=== PATIENT | female | born 2005 | race Two or more races ===

== ENCOUNTER 2024-09-14 09:03 | Emergency (ER) | payer MEDICAID, SELFPAY ==
--- NOTE | 2024-09-14 09:10 | EDNOTE_ITS ---
Nausea/Vomit./Diarrhea-RME/HPI General Chief complaint: Nausea/Vomiting/Diarrhea Stated complaint: VOMITING X4 DAYS, STOMACH PAIN , ACID REFLUX Time Seen by Provider: 09/14/24 09:13 Arrival date/time: 09/14/24 09:03 RME / HPI RME / HPI Narrative: This section includes all my notes and documentations, including HPI, PE, and ED course.? Marcelo Hendrickson MD HPI: 19 year old female presents to the ED for evaluation of abdominal pain beginning 4 days ago. Reports the pain is located most to the epigastric region that she feels moves up her chest, described as a burning acid sensation, rating as moderate. Accompanied by nausea and nonbloody vomiting. States she has been able to tolerate very small sips of water since onset, however unable to tolerate any larger amounts of fluids or solids. Denies fevers, chills, cough, shortness of breath, diarrhea, or urinary symptoms. No other complaints reported. Patient admits to smoking marijuana and last smoked 2 days ago. ROS: All negative except as documented in HPI. Physical Exam: General:? Alert and oriented.? No acute distress when remaining still.?? Eyes:? Conjunctivae and lids clear.? ENT:? No nasal congestion.? Neck:? Supple.? Heart:? RRR.? Lungs:? No respiratory distress.? Good air movement.? Abdomen:? Soft and nontender.?? Legs:? No clubbing, cyanosis, edema.? Skin:? Warm and dry.?? Neuro:? Alert and oriented X 3.?? I reviewed all diagnostic test results. My review of the gallbladder ultrasound report is?normal gallbladder. Blood tests remarkable for positive test. At this point, diagnoses include?first trimester . Treatment here included?Zofran and famotidine. Significant improvement noted. Prescribe Zofran and famotidine and recommended care. Based on my best medical judgment, made decision no further evaluation or treatment indicated at this time.? Patient understands and agrees to the discharge instructions customized and printed, see below. Discharge Instructions from Dr. Hendrickson printed for you: 1. After evaluation, you are (7 1/7 weeks based on last menstruation 08/05/24. Due date is 05/13/25. 2. Zofran for nausea/vomiting. Eat regular nutritious meals. For good hydration, increase oral fluid and maintain clear urine. If dark or yellow, increase oral fluid. 3. Famotidine for acid reflux (mild ulcer) as needed, common in . 4. See coat examiner of your choice on 09/16/2024 for recheck and to start care. 5. Seek immediate medical care with worsening, vaginal bleeding, or with any concerns. Instrucciones de john del Dr. Hendrickson impresas para usted: 1. Despu?s de la evaluaci?n, est? embarazada (7 / semanas seg?n la ?ltima menstruaci?n el 05/08/24. La fecha de parto prevista es el 13/05/25). 2. Zofran para las n?useas/v?mitos. Consuma comidas nutritivas con regularidad. Para viviana buena hidrataci?n, aumente la ingesta de l?quidos por v?a oral y mantenga la orina carlos. Si la orina es oscura o amarilla, aumente la ingesta de l?quidos por v?a oral. 3. Famotidina para el reflujo ?cido (?lcera leve) seg?n sea necesario, com?n en el embarazo. 4. Visite al obstetra de cisneros elecci?n el 16/09/2024 para volver a realizar un control y comenzar con la atenci?n . 5. Busque atenci?n m?dica inmediata si empeora el sangrado vaginal o si tiene alguna inquietud. Related Data Previous Rx's ?Medication ?Instructions ?Recorded famotidine 40 mg tablet 40 mg PO BID #30 tabs ondansetron 4 mg disintegrating 4 mg PO TID PRN nausea and 09/14/24 tablet vomiting 30 days #30 tabs Allergies Allergy/AdvReac Type Severity Reaction Status Date / Time No Known Allergies Allergy Verified 09/14/24 09:04 Review of Systems Review of Systems Systems Reviewed: All systems reviewed, normal except as documented Past Medical History Social History SMOKING STATUS: Never smoker ED Exam Narrative Physical exam: As noted in HPI Course Quality Measures none Orders Category Date Time Status US gall bladder Stat Exams 09/14/24 09:14 Completed Amylase Stat Lab 09/14/24 09:43 Completed CBC Stat Lab 09/14/24 09:43 Completed CMP [Comprehensive Metabolic Panel] Stat Lab 09/14/24 09:43 Completed HCG,Qualitative Serum Stat Lab 09/14/24 09:43 Completed Lipase Stat Lab 09/14/24 09:43 Completed Magnesium Stat Lab 09/14/24 09:43 Completed Famotidine [Pepcid] Med 09/14/24 09:14 Discontinued 40 mg PO X1 ONE Ondansetron Odt [Zofran Odt] Med 09/14/24 09:14 Discontinued 4 mg PO X1 ONE Pantoprazole [Protonix] Med 09/14/24 09:14 Discontinued 40 mg PO X1 ONE Vital Signs Vital signs: Vital Signs Temperature 99.3 F 09/14/24 09:11 Pulse Rate 74 09/14/24 09:11 Respiratory Rate 16 09/14/24 09:11 Blood Pressure 128/79 09/14/24 09:11 Pulse Oximetry (%) 99 09/14/24 09:11 Oxygen Delivery Method Room Air 09/14/24 09:11 Pulse ox is 99% on room air which is adequate. Nausea/Vomiting/Diarrhea MDM Narrative MDM Narrative:: Dona Pedro am scribing for and in the presence of Dr. Hendrickson. Patient data External records reviewed:: [facility] previous records (I reviewed ED visit on 05/05/2024) Clinical information provided by:: patient Social determinants that could affect healthcare access:: substance use (Marijuana ) Patient has the following chronic illnesses:: No chronic medical hx reported How is presenting disease/condition affected by chronic disease/condition?: no chronic disease Evaluation data The following diagnostics were reviewed and interpreted by me:: lab results and radiology exam(s) Lab and/or radiology exams considered but not ordered:: None Interpretation Summary: Positive Medications / Prescriptions Medications / Prescriptions considered but not ordered:: None Medication administrations:: Medication Administration History Discontinued Medications Famotidine (Famotidine 20 Mg Tablet) 40 mg PO X1 ONE Stop: 09/14/24 09:15 Last Admin: 09/14/24 09:32 Dose: 40 mg Documented By: GARY Ondansetron HCl (Ondansetron Odt 4 Mg Tabrap) 4 mg PO X1 ONE; Protocol Stop: 09/14/24 09:15 Last Admin: 09/14/24 09:33 Dose: 4 mg Documented By: GARY Pantoprazole Sodium (Pantoprazole 40 Mg Tablet) 40 mg PO X1 ONE Stop: 09/14/24 09:15 Last Admin: 09/14/24 09:32 Dose: 40 mg Documented By: Admin: 09/14/24 09:32 Dose: 40 mg Documented By: GARY Patient given Famotidine, Zofran, Pantoprazole Consultations Consultation(s) initiated? (list below): No Diagnosis Nausea Differential Diagnosis: food poisoning, gastroenteritis, drug-induced nausea and vomiting, dehydration and other (Gastritis, cholelithiasis, ) Most likely diagnosis given after review of the tests above:: First trimester Admission Indicated Admission indicated?: not indicated Explain why admission is indicated or not indicated:: Does not meet admission criteria Admission Request Was there a request for admission?: No Disposition Plan Disposition Plan: Discharge Discharge Attestation Discharge Attestation: The patient and all family members were given an opportunity to ask questions and understood the discharge instructions. Discharge instructions specifically effects, indications for sooner follow up or return to the emergency department, and the expected course of current diagnosis. Patient condition: Stable Discharge Plan Plan Patient Disposition: HOME (Self Care) Prescriptions/Referrals Prescriptions/Med Rec: New famotidine 40 mg tablet 40 mg PO BID Qty: 30 0RF ondansetron 4 mg tablet,disintegrating 4 mg PO TID PRN (Reason: nausea and vomiting) 30 Days Qty: 30 0RF Problem List Clinical Impression: First trimester Patient/Caregiver Discharge Instructions Discharge Activity: activity as tolerated Education Materials: First Trimester, ED , New Dx Additional Instructions: Discharge Instructions from Dr. Hendrickson printed for you: 1. After evaluation, you are (7 1/7 weeks based on last menstruation 08/05/24. Due date is 05/13/25. 2. Zofran for nausea/vomiting. Eat regular nutritious meals. For good hydration, increase oral fluid and maintain clear urine. If dark or yellow, increase oral fluid. 3. Famotidine for acid reflux (mild ulcer) as needed, common in . 4. See coat examiner of your choice on 09/16/2024 for recheck and to start care. 5. Seek immediate medical care with worsening, vaginal bleeding, or with any concerns. Instrucciones de john del Dr. Hendrickson impresas para usted: 1. Despu?s de la evaluaci?n, est? embarazada (7 1/7 semanas seg?n la ?ltima menstruaci?n el 05/08/24. La fecha de parto prevista es el 13/05/25). 2. Zofran para las n?useas/v?mitos. Consuma comidas nutritivas con regularidad. Para viviana buena hidrataci?n, aumente la ingesta de l?quidos por v?a oral y mantenga la orina carlos. Si la orina es oscura o amarilla, aumente la ingesta de l?quidos por v?a oral. 3. Famotidina para el reflujo ?cido (?lcera leve) seg?n sea necesario, com?n en el embarazo. 4. Visite al obstetra de cisneros elecci?n el 16/09/2024 para volver a realizar un control y comenzar con la atenci?n . 5. Busque atenci?n m?dica inmediata si empeora el sangrado vaginal o si tiene alguna inquietud. Print Language: Ukrainian Stand Alone Forms: Jolene Award Info., Patient Portal Info Letter
[2024-09-14 09:11] VITALS: BP 128/79; PULSE 74; RESP 16; TEMP 37.4; O2SAT 99; BMI 19.9
--- NOTE | 2024-09-14 09:14 | XR_ITS ---
Examination: Abdomen sonogram, Limited Date and time of exam: September 14, 2024 0957 hours INDICATIONS: Abdominal pain nausea vomiting beginning several days ago Technique: Real-time medina scale transabdominal sonographic images of the upper abdomen obtained. Findings: Normal gallbladder Normal common bile duct 0.2 cm Pancreatic head 2.6 cm Liver 13.2 cm smooth contour no focal liver lesions Normal hepatopedal portal venous flow Patent IVC IMPRESSION: Normal gallbladder Normal common bile duct No focal liver lesions
[2024-09-14] MEDS: PANTOPRAZOLE 40 MG TABLET PO ×2 (09:32)
[2024-09-14] MEDS: FAMOTIDINE 20 MG TABLET 40 MG PO (09:32)
[2024-09-14] MEDS: ONDANSETRON ODT 4 MG TABRAP PO (09:33)
[2024-09-14 10:07] LABS: Basophils % (Auto) 0 % (0-2.5); Eosinophils # (Auto) 0.1 Thou/mm3 (0.0-0.5); Eosinophils % (Auto) 1 % (0-10); Hematocrit 36.6 % (36.0-46.0); Hemoglobin 12.8 g/dL (12.0-16.0); Immature Granulocytes % (Auto) 0 % (0-0); Immature Granulocytes Auto 0.03 Thou/mm3 (0.00-0.00); Lymphocytes # (Auto) 1.6 Thou/mm3 (1.0-4.8); Lymphocytes % (Auto) 16 % (10-50); Mean Corpuscular Hemoglobin 30.6 pg (25.0-35.0); Mean Corpuscular Volume 88 fL (80-100); Monocytes # (Auto) 0.5 Thou/mm3 (0.0-0.8); Monocytes % (Auto) 5 % (0-12); Neutrophils # (Auto) 7.5 Thou/mm3 (1.8-7.7); Neutrophils % (Auto) 77 % (37-80); Nucleated Red Blood Cell % 0 /100 WBC (0); Platelet Count 340 Thou/mm3 (140-440); RDW Standard Deviation 40.6 fL (36.4-46.3); Red Blood Count 4.18 Miln/mm3 (4.00-5.20); White Blood Count 9.6 Thou/mm3 (4.5-11.0)
[2024-09-14 10:26] LABS: HCG,Qualitative Serum Positive
[2024-09-14 10:41] LABS: Alanine Aminotransferase 9 U/L (10-49); Albumin, Serum 5.4 gm/dL (3.5-5.0); Albumin/Globulin Ratio 1.9 (1.2-2.2); Alkaline Phosphatase 56 U/L (46-116); Amylase 57 U/L (30-118); Anion Gap 12 (7-16); Aspartate Amino Transferase 14 U/L (0-34); BUN/Creatinine Ratio 13 Ratio (12-20); Bilirubin,Total 0.8 mg/dL (0.3-1.2); Blood Urea Nitrogen 9 mg/dL (9-23); Calcium 10.4 mg/dL (8.3-10.6); Calcium (Corrected) 10.4 mg/dL (8.5-10.1); Carbon Dioxide 21.6 mMol/L (20.0-31.0); Chloride 103 mMol/L (98-107); Creatinine (Component) 0.7 mg/dL (0.6-1.3); Estimated Creatinine Clearance 120.3 mL/min (>60); Globulin 2.9 gm/dL (2.3-3.5); Glucose 91 mg/dL (74-106); Lipase 31 U/L (12-53); Osmolality,Calculated 272 (275-295); Potassium 4.1 mMol/L (3.4-5.1); Sodium 137 mMol/L (136-145); Total Protein 8.3 gm/dL (5.7-8.2); eGFR > 60 See Note
== END 2024-09-14 13:00 | disposition home or self-care (01) ==
LOC: SERX 12:09
PROVIDERS: Emergency Provider Emergency Medicine
DX: O21.9 Vomiting of pregnancy, unspecified (principal); Z3A.01 Less than 8 weeks gestation of pregnancy
CPT/HCPCS: 36415; 76705; 80053; 82150; 83690; 83735; 84703; 85025; 99284; Q0162; A9270

== ENCOUNTER 2024-09-20 12:38 | Emergency (ER) | payer MEDICAID, SELFPAY ==
[2024-09-20 12:39] VITALS: BMI 21.8
[2024-09-20 13:23] VITALS: BP 107/66; PULSE 90; RESP 20; TEMP 36.9; O2SAT 100
--- NOTE | 2024-09-20 13:30 | PD.EDRME ---
Rapid Medical Screening Exam RME Arrival date/time: 09/20/24 12:38 19-year-old female presents emergency dept with complaint of upper abdominal pain patient reports being Chief Complaint: Abdominal Pain Vital signs: Vital Signs Temperature 98.5 F 09/20/24 13:23 Pulse Rate 90 09/20/24 13:23 Respiratory Rate 20 09/20/24 13:23 Blood Pressure 107/66 09/20/24 13:23 Pulse Oximetry (%) 100 09/20/24 13:23 Oxygen Delivery Method Room Air 09/20/24 13:23
[2024-09-20 14:24] LABS: Basophils % (Auto) 0 % (0-2.5); Eosinophils # (Auto) 0.1 Thou/mm3 (0.0-0.5); Eosinophils % (Auto) 1 % (0-10); Hematocrit 38.5 % (36.0-46.0); Hemoglobin 13.4 g/dL (12.0-16.0); Immature Granulocytes % (Auto) 0 % (0-0); Immature Granulocytes Auto 0.02 Thou/mm3 (0.00-0.00); Lymphocytes # (Auto) 1.9 Thou/mm3 (1.0-4.8); Lymphocytes % (Auto) 21 % (10-50); Mean Corpuscular HGB Conc 34.8 g/dl (31.0-37.0); Mean Corpuscular Hemoglobin 29.8 pg (25.0-35.0); Mean Corpuscular Volume 86 fL (80-100); Monocytes # (Auto) 0.5 Thou/mm3 (0.0-0.8); Monocytes % (Auto) 5 % (0-12); Neutrophils # (Auto) 6.5 Thou/mm3 (1.8-7.7); Neutrophils % (Auto) 72 % (37-80); Nucleated Red Blood Cell % 0 /100 WBC (0); Platelet Count 378 Thou/mm3 (140-440); RDW Standard Deviation 38.5 fL (36.4-46.3); Red Blood Count 4.49 Miln/mm3 (4.00-5.20)
[2024-09-20] MEDS: METOCLOPRAMIDE 5 MG TABLET 10 MG PO (14:41)
[2024-09-20 15:02] LABS: Alanine Aminotransferase 11 U/L (10-49); Albumin, Serum 5.3 gm/dL (3.5-5.0); Albumin/Globulin Ratio 1.5 (1.2-2.2); Alkaline Phosphatase 59 U/L (46-116); Anion Gap 11 (7-16); Aspartate Amino Transferase 15 U/L (0-34); BUN/Creatinine Ratio 13 Ratio (12-20); Bilirubin,Total 0.5 mg/dL (0.3-1.2); Blood Urea Nitrogen 9 mg/dL (9-23); Calcium 10.3 mg/dL (8.3-10.6); Calcium (Corrected) 10.3 mg/dL (8.5-10.1); Carbon Dioxide 24.2 mMol/L (20.0-31.0); Chloride 101 mMol/L (98-107); Creatinine (Component) 0.7 mg/dL (0.6-1.3); Estimated Creatinine Clearance 115.4 mL/min (>60); Globulin 3.5 gm/dL (2.3-3.5); Glucose 91 mg/dL (74-106); Lipase 38 U/L (12-53); Osmolality,Calculated 270 (275-295); Potassium 4.1 mMol/L (3.4-5.1); Sodium 136 mMol/L (136-145); Total Protein 8.8 gm/dL (5.7-8.2); eGFR > 60 See Note
[2024-09-20 15:21] LABS: Beta HCG,Quantitative 65221 mIU/mL (<5.0)
[2024-09-20 15:49] VITALS: BP 119/68; PULSE 82; RESP 16; TEMP 37.1; O2SAT 99
[2024-09-20 17:13] LABS: Collection Type, Urine Clean Catch
[2024-09-20 17:40] LABS: Bacteria,Urine 1+; Bilirubin,Urine Negative (Negative); Blood,Urine Negative (Negative); Clarity,Urine Turbid (Clear/Hazy); Color,Urine Lt-Yellow (Lt Yel-Yel); Glucose, Urine Negative (Negative); Hyaline Casts,Urine < 1 /hpf (0-1); Ketones,Urine Trace (Negative); Leukocyte Esterase,Urine Negative (Negative); Nitrite,Urine Negative (Negative); PH,Urine 6.5 (5.0-7.0); Protein,Urine Negative (Neg - Trace); RBC,Urine 2 /hpf (0-3); Specific Gravity,Urine 1.011 (1.001-1.035); Squamous Epithelial Cell,Urine 10 /hpf (0-5); Urobilinogen,Urine Negative mg/dL (0.0-1.0); WBC,Urine 2 /hpf (0-5)
[2024-09-20 18:02] LABS: Culture Indicated,Urine Yes
[2024-09-20] MEDS: METOCLOPRAMIDE INJ 5 MG/ML VIAL 2 ML 10 MG IM (18:35)
--- NOTE | 2024-09-20 19:52 | PD.EDABDPN ---
ED Abdominal Pain RME/HPI General Chief Complaint: Abdominal Pain Stated complaint: ABD. PAIN AND VOMITING DX WITH ULCERS Time seen by provider: 09/20/24 18:18 Arrival date/time: 09/20/24 12:38 19-year-old female A1 presents emergency department complaining of diffuse abdominal pain with vomiting for several days. Patient denies any fever, chills, cough, diarrhea, dysuria, vaginal bleeding, or any other associated symptom. Source: patient Mode of arrival: ambulatory Limitations: no limitations RME / HPI RME / HPI narrative: 09/20/24 12:38 19-year-old female presents emergency dept with complaint of upper abdominal pain patient reports being Related Data Previous Rx's ?Medication ?Instructions ?Recorded famotidine 40 mg tablet 40 mg PO BID #30 tabs 09/14/24 ondansetron 4 mg disintegrating 4 mg PO TID PRN nausea and 09/14/24 tablet vomiting 30 days #30 tabs ondansetron 4 mg disintegrating 4 mg PO Q8H PRN nausea and 09/20/24 tablet vomiting #7 tabs Allergies Allergy/AdvReac Type Severity Reaction Status Date / Time No Known Allergies Allergy Verified 09/20/24 12:44 Review of Systems Review of Systems Systems Reviewed: All systems reviewed, normal except as documented Constitutional Constitutional: Reports system reviewed and no additional complaints, except as documented, Denies body ache(s), Denies chills and Denies fever(s) Eyes Eyes: Reports system reviewed and no additional complaints, except as documented and Denies change in vision ENT Ears, Nose, Mouth, and Throat: Reports system reviewed and no additional complaints, except as documented, Denies disequilibrium, Denies dizziness, Denies sore throat and Denies vertigo Cardiovascular Cardiovascular: Reports system reviewed and no additional complaints, except as documented, Denies chest pain and Denies dyspnea Respiratory Respiratory: Reports system reviewed and no additional complaints, except as documented, Denies chest congestion, Denies cough and Denies dyspnea Gastrointestinal Gastrointestinal: Reports system reviewed and no additional complaints, except as documented, Reports abdominal pain, Reports nausea and Reports vomiting Musculoskeletal Musculoskeletal: Reports system reviewed and no additional complaints, except as documented, Denies abnormal gait and Denies arthralgias Integumentary/Breasts Skin/Breast: Reports system reviewed and no additional complaints, except as documented, Denies erythema, Denies rash and Denies wounds Neurologic Neurologic: Reports system reviewed and no additional complaints, except as documented, Denies abnormal gait, Denies disequilibrium, Denies dizziness and Denies vertigo Past Medical History Social History SMOKING STATUS: Never smoker ED Exam General Limitations: Present no limitations General appearance: Present alert and in no apparent distress Head Head exam: Present atraumatic Eye Eye exam: Present normal appearance, PERRL and EOMI ENT ENT exam: Present normal exam, normal oropharynx and mucous membranes moist Neck Neck exam: Present normal inspection, full ROM and trachea midline Chest Chest inspection: Present normal inspection and symmetric chest wall rise Respiratory Respiratory exam: Present normal lung sounds bilaterally Cardiovascular Cardiovascular exam: Present regular rate, normal rhythm and normal heart sounds Abdominal Exam Abdominal exam: Present soft and normal bowel sounds Extremities Exam Extremities exam: Present normal inspection and full ROM Back Exam Back exam: Present normal inspection and full ROM Neurological Exam Neurological exam: Present alert, oriented X3 and CN II-XII intact Psychiatric Psychiatric exam: Present normal affect and normal mood Skin Skin exam: Present warm, dry, intact and normal color Course Quality Measures none Orders Category Date Time Status Beta HCG,Quantitative Stat Lab 09/20/24 13:43 Completed CBC Stat Lab 09/20/24 13:43 Completed Comprehensive Metabolic Panel Stat Lab 09/20/24 13:43 Completed Lipase Stat Lab 09/20/24 13:43 Completed UA, C/S IF [Urinalysis, C/S if Indicated] Stat Lab 09/20/24 17:09 Completed Urine Culture Stat Lab 09/20/24 17:09 Received Metoclopramide Inj [Reglan Inj] Med 09/20/24 18:31 Discontinued 10 mg IM X1 ONE Metoclopramide [Reglan] Med 09/20/24 13:29 Discontinued 10 mg PO X1 ONE Vital Signs Vital signs: Vital Signs Temperature 98.5 F 09/20/24 13:23 Pulse Rate 90 09/20/24 13:23 Respiratory Rate 20 09/20/24 13:23 Blood Pressure 107/66 09/20/24 13:23 Pulse Oximetry (%) 100 09/20/24 13:23 Oxygen Delivery Method Room Air 09/20/24 13:23 100% room air within normal limits Abdominal Pain MDM MDM Narrative MDM Narrative:: 19-year-old female A1 presents emergency department complaining of diffuse abdominal pain with vomiting for several days. Patient denies any fever, chills, cough, diarrhea, dysuria, vaginal bleeding, or any other associated symptom. CBC was unremarkable for any leukocytosis or anemia. CMP is unremarkable for any elevated LFTs or gross electro abnormalities[place] [address]. Gallbladder ultrasound was unremarkable. Patient reports was given 1 dose of p.o. Reglan but threw it up right after. IM dose of Reglan was given with successful p.o. challenge. Patient reports significant permanent symptoms. Patient stable for discharge directed to follow-up with primary care provider and [facility] upon discharge and return to emergency department for any worsening symptoms or as needed. Patient data External records reviewed:: [facility] previous records Clinical information provided by:: patient Social determinants that could affect healthcare access:: none Patient has the following chronic illnesses:: None How is presenting disease/condition affected by chronic disease/condition?: no chronic disease Evaluation data The following diagnostics were reviewed and interpreted by me:: lab results and radiology exam(s) Lab and/or radiology exams considered but not ordered:: Ordered Interpretation Summary: Interpreted by me Medications / Prescriptions Medications or Prescriptions considered but not ordered:: Ordered Medication administrations:: Medication Administration History Discontinued Medications Metoclopramide HCl (Metoclopramide 5 Mg Tablet) 10 mg PO X1 ONE Stop: 09/20/24 13:30 Last Admin: 09/20/24 14:41 Dose: 10 mg Documented By: DWAIN Metoclopramide HCl (Metoclopramide Inj 5 Mg/Ml Vial 2 Ml) 10 mg IM X1 ONE; Protocol Stop: 09/20/24 18:32 Last Admin: 09/20/24 18:35 Dose: 10 mg Documented By: DWAIN Given Consultations Consultation(s) initiated? (list below): No Diagnosis Differential diagnosis abdominal pain: abdominal pain, acute appendicitis, calculus of kidney, constipation, diverticulitis, gastroenteritis, pancreatitis and small bowel obstruction Most likely diagnosis given after review of the tests above:: Abdominal pain Admission Indicated Admission indicated?: not indicated Admission Request Was there a request for admission?: No Disposition Plan Disposition Plan: Discharge Discharge Attestation Discharge Attestation: The patient and all family members were given an opportunity to ask questions and understood the discharge instructions. Discharge instructions specifically effects, indications for sooner follow up or return to the emergency department, and the expected course of current diagnosis. Patient condition: Stable Discharge Plan Plan Patient Disposition: HOME (Self Care) Disposition Comment: Stable Prescriptions/Referrals Prescriptions/Med Rec: New ondansetron 4 mg tablet,disintegrating 4 mg PO Q8H PRN (Reason: nausea and vomiting) Qty: 7 0RF No Action famotidine 40 mg tablet 40 mg PO BID Qty: 30 0RF ondansetron 4 mg tablet,disintegrating 4 mg PO TID PRN (Reason: nausea and vomiting) 30 Days Qty: 30 0RF Problem List Clinical Impression: Abdominal pain Patient/Caregiver Discharge Instructions Discharge Activity: activity as tolerated Education Materials: Abdominal Pain Additional Instructions: Drink plenty of fluids and stay hydrated. [place] diet and advance as tolerated. Take Zofran as needed for nausea. Follow-up with [facility] and primary care provider in 2 to 3 days. Return to emergency department for any worsening symptoms or as needed. Print Language: English Stand Alone Forms: Jolene Award Info., Patient Portal Info Letter PA/INTELLIGENCE MANAGER Supervising Physician PA/INTELLIGENCE MANAGER Supervising Physician: Dr. Glynn
[2024-09-20 20:00] VITALS: PULSE 78; RESP 18; TEMP 36.2; O2SAT 99
== END 2024-09-20 20:00 | disposition home or self-care (01) ==
PROVIDERS: Nurse Practitioner Primary Care; Emergency Provider Emergency Medicine
DX: O26.899 Other specified pregnancy related conditions, unspecified trimester (principal); O21.9 Vomiting of pregnancy, unspecified; R10.9 Unspecified abdominal pain; Z3A.00 Weeks of gestation of pregnancy not specified
CPT/HCPCS: 36415; 80053; 81001; 83690; 84702; 85025; 87077; 87086; 87186; 96372; 99283; J2765; A9270

== ENCOUNTER 2025-04-07 08:55 | Outpatient (AMB) | payer MEDICAID, SELFPAY ==
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
[2025-04-07 09:13] VITALS: BP 114/78; PULSE 92; RESP 17; TEMP 36.6; O2SAT 98; BMI 26.6
== END 2025-04-07 09:52 | disposition home or self-care (01) ==
LOC: HODSOBC 08:55
PROVIDERS: Supervising Provider Advanced Practice Midwife; Visit Provider Advanced Practice Midwife
DX: O09.893 Supervision of other high risk pregnancies, third trimester (principal); O99.891 Other specified diseases and conditions complicating pregnancy; N89.8 Other specified noninflammatory disorders of vagina; R30.0 Dysuria; Z3A.35 35 weeks gestation of pregnancy
CPT/HCPCS: 99214; G0463

== ENCOUNTER 2025-04-19 13:08 | Outpatient (AMB) | payer MEDICAID, SELFPAY ==
[2025-04-19 14:29] VITALS: BP 128/81; PULSE 83; RESP 16; TEMP 36.6; O2SAT 98; BMI 27.5
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
== END 2025-04-19 14:58 | disposition home or self-care (01) ==
LOC: HODSOBC 13:08
PROVIDERS: Supervising Provider Advanced Practice Midwife; Visit Provider Advanced Practice Midwife
DX: O09.893 Supervision of other high risk pregnancies, third trimester (principal); O99.820 Streptococcus B carrier state complicating pregnancy; Z3A.37 37 weeks gestation of pregnancy; Z87.891 Personal history of nicotine dependence
CPT/HCPCS: 99214; G0463

== ENCOUNTER 2025-04-20 10:53 | Observation (INO) | payer MEDICAID, SELFPAY ==
[2025-04-20 10:55] VITALS: BP 127/83; PULSE 86; RESP 18; RESP 99; TEMP 37
[2025-04-20 10:56] VITALS: BMI 27.3
[2025-04-20 10:59] VITALS: BP 127/83; PULSE 86
== END 2025-04-20 11:40 | disposition home or self-care (01) ==
PROVIDERS: Admitting Provider Obstetrics & Gynecology; Visit Provider Obstetrics & Gynecology
DX: O36.8130 Decreased fetal movements, third trimester, not applicable or unspecified (principal); Z3A.37 37 weeks gestation of pregnancy
CPT/HCPCS: 59025; 59899

== ENCOUNTER 2025-04-28 09:59 | Outpatient (AMB) | payer MEDICAID, SELFPAY ==
[2025-04-28 10:10] VITALS: BP 130/79; PULSE 85; RESP 16; TEMP 36.2; O2SAT 98; BMI 27.6
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
== END 2025-04-28 10:36 | disposition home or self-care (01) ==
LOC: HODSOBC 09:59
PROVIDERS: Supervising Provider Advanced Practice Midwife; Visit Provider Advanced Practice Midwife
DX: O09.93 Supervision of high risk pregnancy, unspecified, third trimester (principal); Z3A.38 38 weeks gestation of pregnancy; Z87.891 Personal history of nicotine dependence
CPT/HCPCS: 99215; G0463

== ENCOUNTER 2025-05-05 11:25 | Outpatient (AMB) | payer MEDICAID, SELFPAY ==
[2025-05-05 11:41] VITALS: BP 120/75; PULSE 87; RESP 16; TEMP 36.2; O2SAT 98; BMI 27.8
--- NOTE | 2025-05-05 11:41 | AMB.OBVISIT ---
Vital Signs 05/05/25 11:41 Height 1.68 m Height Method Stated Weight 78.642 kg Weight Measurement Method Standing Scale BMI 27.8 BP 120/75 Blood Pressure Source Automatic Cuff Blood Pressure Location Left Upper Arm Position Sitting Respiration 16 Pulse 87 Pulse Source Monitor Temp 97.2 F Temp Source Oral Pulse Oximetry (%) 98 Oxygen Delivery Method Room Air Allergies/Home Meds Allergies & Medications Allergies No Known Allergies Allergy (Verified 05/05/25 11:44) Medication Reconciliation vitamin-ferrous fumarate 28 mg iron-folic acid 800 mcg tablet ( Vitamins with Minerals) 1 tab PO QDAY #60 tabs 04/28/25 [Rx Confirmed 05/05/25] Intake Visit Data Collection New Patient or Established: Established Patient (seen at [facility] within 3 years) Reason for Visit:: OBC Seen by Clinical Staff ONLY (RN/MA): No Medical Record Technician Required: No Do You Feel Safe at Home: Yes Authorities Contacted: N/A PCP or OBGYN visit in last 3 months: Yes Date of Last PCP or OBGYN visit: 04/28/25 Hx Now: Yes Are you currently on any form of Control: No Pain Present Currently: No Pain Scale Used: [place]/Numerical Pain scale:: 0 Smoking Status Smoking Status: Former smoker Questionnaires Covid-19 Vaccine Questionnaire Has patient been vacinated for Covid-19 Have you been vacinated for Covid-19: Yes PHQ-9 PHQ-2 Over the last 2 weeks, how often have you been bothered by any of the following problems? 1. Little interest or pleasure in doing things: not at all 2. Feeling down, depressed, or hopeless: not at all Total score: 0 PHQ-9 3. Trouble falling or staying asleep, or sleeping too much: Not at all 4. Feeling tired or having little energy: Not at all 5. Poor appetite or overeating: Not at all 6. Feeling bad about yourself - or that you are a failure or have let yourself or your family down: Not at all 7. Trouble concentrating on things, such as reading the newspaper or watching television: Not at all 8. Moving or speaking so slowly that other people could have noticed? - Or the opposite - being so fidgety or restless that you have been moving around a lot more than usual: not at all 9. Thoughts that you would be better off or of hurting yourself in some way: Not at all Total score: 0 If you checked off any problems, how difficult have these problems made it for you to do your work, take care of things at home, or get along with other people?: not difficult at all Source: Developed by Drs. Johnie Reeves, Emily Hidalgo, Henrik Colbert and colleagues, with an educational yasmany from [employer]. Depression screen completed yes Social History Living Situation History Marital Status: Lives With: Family Housing: House Tobacco History Smoking Status: Former smoker Second Hand Smoke Exposure: No Alcohol History Alcohol Intake: Former Domestic Abuse History Do You Feel Safe at Home: Yes Care OB Visit Log OB Flowsheet Initial Weight: Not Recorded Date <del>?</del> EGA Weight BP Alb Glu CTX Pres Fundal ht FHR Mov Dilation Station Effacement Hx Notes Visit Note 04/07/25 <del>?</del> 35w 6d 75.07 kg 114/78 occasional cephalic 35 135 active 19-year-old 2 para 0 for OBI. Patient is a transfer from Dr. Angel with records. Her last. Was July 30, 2024. This gives a due date May 07. Reports movement. Increased UC's and pressure. Denies leaking or bleeding. Patient has complaints of vaginal discharge that is white and clumpy. And some dysuria. Vaginal inspection showed white clumpy discharge. Vagina was red Diflucan 150 p.o. x 3. Flagyl 500 p.o. twice daily x 7. NuSwab plus and GBS culture done today. Discussed labor precautions and kick count twice a day. Increase fluids. Discussed danger signs symptoms return a week OB check 04/19/25 <del>?</del> 37w 4d 77.678 kg 128/81 occasional cephalic 36 135 active Fetus active. Denies leaking, bleeding, contractions. No OB complaints. Vaginitis is improved. Discussed GBS positive and new swab. Kick counts twice a day. Discussed labor precautions and ER precautions with parameters. Return a week OB check 04/28/25 <del>?</del> 38w 6d 78.131 kg 130/79 occasional cephalic 37 135 active -3 50 sve: L/closed/50/-3 Discussed labor precautions. Discussed kick count twice a day. Discussed danger signs and symptoms and ER precautions. Increase fluids. Continue prenatals and those were refilled. Return in a week OB check 05/05/25 <del>?</del> 39w 6d 78.642 kg 120/75 occasional cephalic 38 135 active 1 -3 50 Fetus active. Reports good movement. Denies leaking, denies bleeding, increased pressure. Occasional contraction Reviewed kick count twice a day. Discussed labor precautions. Reviewed GBS positive. Schedule induction for May 13, 2025. KEVIN Calculator Estimated Delivery Date Method Current WG Current Estimate 05/06/25 LMP (Certain) 39w 6d Other Estimates 05/07/25 Ultrasound #1 39w 5d 05/07/25 Manual 39w 5d final kevin: 05/07/25 Notes Visit Date: 05/05/25 Last Updated by: Gianna Ruiz CNM IOL: 05/13/25 Visit Date: 04/19/25 Last Updated by: Gianna Ruiz CNM GBS+, GC/CT-, Nuswab- Visit Date: 04/07/25 Last Updated by: Gianna Ruiz CNM 19 yo . LMP 07/30/24. EDC: 05/07/25. 1st ob sono: 10/14/24: IUP 10w5. EDC: 05/08/25. OB panel: B+,abs-, rpr;;nr, rub imm, HBSAG-,HIV-,HC-, GC/CT-, AFP/NT,acrrier screen-, 37/12. A1c: 5.0, 1 hr gtt normal Office Procedures OB Clinic LOC & Office Proc's Nursing/Assessment Patient Status: Established Patient OB Clinic Nursing Assessment: Medication Reconciliation, Update PMH in EMR and Vital Signs OB Clinic Coordination of Care: Education Complex Pt/Fam, Consent,records obtained, informed consent, Lab and Imaging orders, Results/Orders obtained and Staff clarify orders Special Needs: Heart tones Established Patient Charge Established Patient Point Assignment: 115 Established Patient Point Charge: EP Level 3 (80-115) Assessment & Plan Diagnosis / Problem List (1) Encounter for supervision of high risk in third trimester, antepartum: Status: Acute Plan Discussed kick count twice a day. Reviewed signs symptoms of labor. Schedule induction for May 13. Discussed danger signs symptoms and ER precautions Additional Plan Follow Up: 1 Week (obc)
== END 2025-05-05 12:26 | disposition home or self-care (01) ==
LOC: HODSOBC 11:25
PROVIDERS: Supervising Provider Advanced Practice Midwife; Visit Provider Advanced Practice Midwife
DX: O09.893 Supervision of other high risk pregnancies, third trimester (principal); Z3A.39 39 weeks gestation of pregnancy; O99.820 Streptococcus B carrier state complicating pregnancy; Z87.891 Personal history of nicotine dependence
CPT/HCPCS: 99213; G0463

== ENCOUNTER 2025-05-11 15:57 | Inpatient (IN) | payer MEDICAID, SELFPAY ==
[2025-05-11] VITALS (106 sets, daily range): BP systolic 102–139; BP diastolic 56–81; PULSE 61–101; RESP 16–98; TEMP 36.6–37.1; O2SAT 89–100; BMI 28.2
--- NOTE | 2025-05-11 16:33 | XR_ITS ---
Examination: Biophysical profile, ultrasound Date and time of exam: May 11, 2025, 1734 hrs. Indications: Post dates Technique: Multiple transabdominal sonographic images of the pelvis abdomen obtained. Attention is directed to the breathing movement, gross body movement, amniotic fluid volume and tone. Findings: Amniotic fluid index 4.5 cm Total biophysical profile is 6 of 8. breathing movement is 2. Gross body movement is 2. tone is 2. Qualitative amniotic fluid volume is 0 Impression: Biophysical profile is 6 of 8.
--- NOTE | 2025-05-11 16:34 | XR_ITS ---
Examination: Complete OB ultrasound greater than 14 weeks Date and time of exam: May 11, 2025 7009 hours Indications: Post dates Findings: Viable intrauterine single fetus with single amniotic sac presentation cephalic Cardiac motion 129 BPM Placenta posterior grade 3 Umbilical cord insertion 3 vessel seen. Amniotic fluid index 3.2 cm spine maternal right Cervix 3.4 cm Ovaries obscured by bowel gas. Composite estimated gestational age based on BPD, head circumference, abdominal circumference, femur length is 36 weeks 3 days Estimated weight 2847 g. Survey of intracranial anatomy, spinal anatomy, abdominal anatomy, four-chamber heart performed with no abnormalities identified. Impression: Viable intrauterine gestation cephalic presentation Estimated gestational age 36 weeks 3 days Amniotic fluid index 3.2 cm
[2025-05-11 19:36] LABS: Basophils # (Auto) 0.0 Thou/mm3 (0.0-0.2); Basophils % (Auto) 0 % (0-2.5); Eosinophils # (Auto) 0.0 Thou/mm3 (0.0-0.5); Eosinophils % (Auto) 0 % (0-10); Hematocrit 38.7 % (36.0-46.0); Hemoglobin 13.3 g/dL (12.0-16.0); Immature Granulocytes Auto 0.08 Thou/mm3 (0.00-0.00); Lymphocytes # (Auto) 2.9 Thou/mm3 (1.0-4.8); Lymphocytes % (Auto) 19 % (10-50); Mean Corpuscular HGB Conc 34.4 g/dl (31.0-37.0); Mean Corpuscular Hemoglobin 32.4 pg (25.0-35.0); Mean Corpuscular Volume 94 fL (80-100); Monocytes # (Auto) 0.9 Thou/mm3 (0.0-0.8); Monocytes % (Auto) 6 % (0-12); Neutrophils # (Auto) 11.6 Thou/mm3 (1.8-7.7); Neutrophils % (Auto) 75 % (37-80); Nucleated Red Blood Cell # 0.00 Thou/mm3 (0.00-0.00); Nucleated Red Blood Cell % 0 /100 WBC (0); Platelet Count 220 Thou/mm3 (140-440); RDW Standard Deviation 43.5 fL (36.4-46.3); Red Blood Count 4.11 Miln/mm3 (4.00-5.20); White Blood Count 15.5 Thou/mm3 (4.5-11.0)
[2025-05-11] MEDS: RINGERS LACTATED 1000 ML 1,000 ML 100 ML IV ×2 (19:47→20:30)
[2025-05-11] MEDS: Ampicillin Inj 2,000 MG in SODIUM CHLORIDE 0.9% (POP) 100 ML 200 MG IV (20:20)
[2025-05-11 20:39] LABS: Syphilis Nonreactive (Nonreactive)
[2025-05-11 22:00] LABS: Amphetamine/Metham Scrn,Ur OB Negative (Negative); Benzoylecgonine Screen, Ur OB Negative (Negative); Opiate Screen,Urine OB Negative (Negative); THC Screen,Urine OB Negative (Negative)
[2025-05-12] VITALS (33 sets, daily range): BP systolic 118–171; BP diastolic 58–98; PULSE 73–166; RESP 16–17; TEMP 36.3–37.4; O2SAT 89–100
[2025-05-12] MEDS: RINGERS LACTATED 1000 ML 1,000 ML 100 ML IV (00:23)
[2025-05-12] MEDS: Ampicillin Inj 1,000 MG in SODIUM CHLORIDE 0.9% (Popper) 50 ML 50 MG IV (00:24)
[2025-05-12] MEDS: MINERAL OIL 30 ML UDC TOP (01:15)
[2025-05-12] MEDS: OXYTOCIN INJ 10 UNIT/ML VIAL IM (01:15)
[2025-05-12] MEDS: OXYTOCIN in NS 20 units 20 UNIT/1,000 ML BAG 125 UNIT IV (01:16)
[2025-05-12] MEDS: BENZO/LANO/ALOE (Dermoplast) 60 GM CAN 1 SPRAY TOP (01:16)
[2025-05-12] MEDS: TRANEXAMIC ACID 1,000 MG IVPB 1,000 MG/100 ML BAG 200 MG IV (01:44)
--- NOTE | 2025-05-12 01:56 | ESHP_ITS ---
Documentation for date of: 05/12/25 OB Labor/Induct. HPI History of Present Illness Chief complaint: labor : 2 Para: 0 Term pregnancies: 0 pregnancies: 0 Living children: 0 History of Abortions: Spontaneous and Elective: 1 History of Vaginal deliveries: 0 History of sections: No History of : No Date of last menstrual period: 07/30/24 KEVIN: 05/07/25 Gestational Age (weeks): 40 Gestational Age (days): 5 Gestational age based on last menstrual period: 40 Indication for induction: post dates History of present illness: 19-year-old 2 para 0 for complaints of contractions since 1600. Patient also came in for decreased movement. NST BPP was 8 out of 8. And SRINI was 3.5. The baby also was measuring 36 weeks so patient was can For spontaneous labor. Denies leaking or bleeding. Patient started her care with Dr. Angel. Transferred care to [facility] OB clinic at 35 weeks denies social habits. Denies surgery. Denies chronic illness. Patient is B+, antibody screen negative, RPR nonreactive, rubella immune, hepatitis B negative. HIV negative, hepatitis C negative, GC and Chlamydia were negative. 1 hour was normal. NIPT , AFP and carrier screens were all negative. GBS Pap History of Present Dating criteria: LMP confirmed by 1st trimester US Adequate Care: Yes Ultrasounds: normal 1st trimester US and normal mid trimester US Obstetrical complications: none Medical complications: none Labs Labs: Positive: Rubella Titre and Group Beta Strep, Negative: RPR, Hepatitis B, HIV, Chlamydia and Gonorrhea and Unknown: Herpes Type 1, Herpes Type 2 and Covid-19 Review of Systems Review of Systems Systems Reviewed: All systems reviewed, normal except as documented Past Medical History Surgical History SURGICAL: Negative Section Meds Home Medications and Allergies Allergies Allergy/AdvReac Type Severity Reaction Status Date / Time No Known Allergies Allergy Verified 05/05/25 11:44 OB Exam Physical Exam Vital signs: Temp Pulse Resp BP Pulse Ox O2 Del Method 98.7 F 106 H 16 171/82 H 89 L Room Air 05/11/25 20:30 05/12/25 01:47 05/11/25 20:30 05/12/25 01:47 05/12/25 01:32 05/11/25 20:30 Narrative: Alert and oriented. Normal heart rate and rhythm. Lungs clear no wheezes. Gravid abdomen. Gynecoid pelvis. Estimated weight 6-1/2 pounds. Vaginal exam admission was 80%, 5, -2 vertex. heart rate category 1 with accelerations and moderate variability and contractions were about every 3 to 4 minutes of moderate. bag water intact. Detailed Labor and Delivery Exam Dilation (cm): 5 Effacement (%): 80 Cervix position: mid station: -2 Consistency: soft Presentation: Vertex Cervical ripeness score: 8 Membranes: intact Baseline heart rate: 140 monitor accelerations: 15x15 monitor decelerations: None intermodal customer service variability: Moderate (11-25) Contraction frequency (min): 3-4 Contraction duration (sec): 40 Tachysystole: No Contraction intensity: Moderate OB Results Labs 05/11/25 19:10 Labs: Short CBC 05/11/25 Range/Units 19:10 WBC 15.5 H (4.5-11.0) Thou/mm3 Hgb 13.3 (12.0-16.0) g/dL Hct 38.7 (36.0-46.0) % Plt Count 220 (140-440) Thou/mm3 OB Assessment & Plan Assessment and Plan (1) Encounter for supervision of high risk in third trimester, antepartum: Status: Acute Additional Plan Induction method: none Plan: anticipate NVD, GBS prophylaxis tx and consult MD gamez
--- NOTE | 2025-05-12 02:02 | OBDSUM_ITS ---
Data (Denny) Data Hx Section: No : 2 Term: 0 : 0 Livin Abortions: Spontaneous & Theraputic: 1 Delivery Data (Denny) Labor Data Initiation of labor: Spontaneous Induction/Augmentation Agent: None and Artificial ROM ROM date: 05/12/25 ROM time: 00:42 Amniotic membrane rupture type: Artificial Amniotic fluid description: Moderate Meconium Delivery Data EDC: 05/07/25 EDC calculated by:: LMP/early US confirmation Date of arrival to unit: 05/11/25 Time of arrival to unit: 15:57 Onset of labor date: 05/11/25 Onset of labor time: 16:30 Complete dilation date: 05/12/25 Complete dilation time: 00:19 [place] delivery date: 05/12/25 [place] delivery time: 01:02 Gestational age (weeks): 40 Gestational age (days): 5 Placenta delivery date: 05/12/25 Placenta delivery time: 01:10 Stage 1 total time: Labor - Stage 1 Duration 7 hours and 49 minutes Delivered by: Xiomara LERNER Delivery nurse: pedro pablo Ruffin nurse: lilian hui rn Support person(s) at delivery: father of baby Other staff at delivery: jeronimo cazares rnc Delivery Method Delivery method: Normal Vaginal Delivery Presentation: Vertex position: OA Anesthesia Type Anesthesia Type: Epidural Delivery Room Medications Delivery room medications: Pitocin 10 u IM, Pitocin 20 u IV, Cytotec 800 NC and other (txa) Placenta Placenta delivery description: Spontaneous (inspected, intact) Cord blood sent to lab: Yes cord blood collection: Cord Blood Type Episiotomy Episiotomy description: Midline Perineal repair Sutures used for repair: 3.0 Vicryl EBL Estimated blood loss (ml): 400 Umbilical Cord cord description: 3 Vessels Data (Denny) Data order: 1 's gender: Female weight (gms): 3075 g Weight (pounds): 6 lbs and 12.5 ozs length: 50.8 cm 1 minute: 8 5 minutes: 9 10 minutes: 9
[2025-05-12] MEDS: IBUPROFEN TAB 400 MG TABLET 800 MG PO ×3 (03:05→21:03)
[2025-05-12] MEDS: DOCUSATE SOD 100 MG CAPSULE PO ×2 (08:06→20:49)
[2025-05-12 10:35] LABS: Basophils # (Auto) 0.0 Thou/mm3 (0.0-0.2); Basophils % (Auto) 0 % (0-2.5); Eosinophils # (Auto) 0.0 Thou/mm3 (0.0-0.5); Eosinophils % (Auto) 0 % (0-10); Hematocrit 36.2 % (36.0-46.0); Hemoglobin 12.4 g/dL (12.0-16.0); Immature Granulocytes Auto 0.07 Thou/mm3 (0.00-0.00); Lymphocytes # (Auto) 2.2 Thou/mm3 (1.0-4.8); Lymphocytes % (Auto) 16 % (10-50); Mean Corpuscular HGB Conc 34.3 g/dl (31.0-37.0); Mean Corpuscular Hemoglobin 32.2 pg (25.0-35.0); Mean Corpuscular Volume 94 fL (80-100); Monocytes # (Auto) 1.0 Thou/mm3 (0.0-0.8); Monocytes % (Auto) 7 % (0-12); Neutrophils # (Auto) 10.9 Thou/mm3 (1.8-7.7); Neutrophils % (Auto) 77 % (37-80); Nucleated Red Blood Cell # 0.00 Thou/mm3 (0.00-0.00); Nucleated Red Blood Cell % 0 /100 WBC (0); Platelet Count 203 Thou/mm3 (140-440); RDW Standard Deviation 43.5 fL (36.4-46.3); Red Blood Count 3.85 Miln/mm3 (4.00-5.20); White Blood Count 14.2 Thou/mm3 (4.5-11.0)
--- NOTE | 2025-05-12 12:29 | PC.SS ---
This SW intern brand completed a face to face biopsychosocial assessment with pt at bedside. and FOB not Teto Cardena not present. This SW intern brand explained the reason for referral as it was reported by assigned RN pt was late to care. Patient was alert and oriented to place and time, she was in good spirits engaging and seen bonding appropriately with baby. Pt was able to verify home address and telephone number. She stated [facility] would be transporting both her and baby home once discharged. Pt reported she was late to care because she was having a hard time getting in with preferred provider Gianna Ruiz. Patient stated she carried and delivered full term vaginal delivery. score of 8/9 . Pt stated this is her first baby with no history of CPS. She denies any history of drugs or alcohol in the home. Patient states she receives WIC, no tomas aid or suly fresh services. Patient reports she does her own ADL's and does not use any DME or O2. PT reports baby was not on any lights and passed hearing test. She states she will breast feed baby and has all supplies for baby at home. This SW intern brand provided community resources to [facility] network, local mental health agencies, [facility] and [facility] agencies.
[2025-05-13 04:30] VITALS: BP 122/80; RESP 17; TEMP 36.5; O2SAT 97
[2025-05-13 08:00] VITALS: BP 125/88; PULSE 90; RESP 14; TEMP 36.7; O2SAT 97
[2025-05-13] MEDS: IBUPROFEN TAB 400 MG TABLET 800 MG PO (08:23)
[2025-05-13] MEDS: DOCUSATE SOD 100 MG CAPSULE PO (08:35)
--- NOTE | 2025-05-13 10:04 | PD.LDPPPRG ---
Subjective Subjective Interval history: No complaints of pain. No dizziness. Bonding and breast-feeding Exam Vital Signs Temp Pulse Resp BP Pulse Ox O2 Del Method 97.7 F 96 17 122/80 97 Room Air 05/13/25 04:30 05/12/25 02:46 05/13/25 04:30 05/13/25 04:30 05/13/25 04:30 05/13/25 04:30 Narrative Exam Vital signs stable afebrile. Pressure soft. Fundus firm below umbilicus. Perineum intact no swelling. Small lochia. Uterus well involuted. Negative Homans' sign. 2+ DTRs Objective Labs 05/12/25 10:25 Labs: Laboratory Results - last 24 hr 05/12/25 10:25 WBC 14.2 H RBC 3.85 L Hgb 12.4 Hct 36.2 MCV 94 MCH 32.2 MCHC 34.3 RDW Std Deviation 43.5 Plt Count 203 Neut % (Auto) 77 Lymph % (Auto) 16 [place] % (Auto) 7 Eos % (Auto) 0 Baso % (Auto) 0 Neut # (Auto) 10.9 H Lymph # (Auto) 2.2 [place] # (Auto) 1.0 H Eos # (Auto) 0.0 Baso # (Auto) 0.0 Immature Gran # (Auto) 0.07 H Absolute Nucleated RBC 0.00 Immature Gran % 1 H Nucleated RBC % 0 Assessment & Plan Problem List (1) Encounter for supervision of high risk in third trimester, antepartum: Status: Acute Assessment Comment Assessment comment: 24 hr pp Plan Comment Plan Comment: Discharge home with baby. Continue vitamins and iron. Tylenol ibuprofen for pain. Discussed danger signs and symptoms and ER precautions. And I discussed signs symptoms of infection. Discussed comfort measures and sitz bath's for midline episiotomy. Return in 2 weeks Time Spent With Patient Time: Total time spent is greater than 50% in coordination of care (as documented) at patient's floor/unit and/or counseling patient:
--- NOTE | 2025-05-13 10:05 | ESDS_ITS ---
DS: Providers Provider Date of admission: 05/11/25 19:23 Primary care physician: Physician No Primary/Family Admitting Provider: Gianna Ruiz CNM Attending Provider on Admission: Gianna Ruiz CNM Consults: 05/12/25 02:12 Referral Routine Comment: Attending Provider on DC: Gianna Ruiz CNM Discharging Provider: Gianna Ruiz CNM DS: Diagnosis Problem List Completed Was Problem List Reviewed/Reconciled?: Yes Summary/Hosp Course Brief History: 19-year-old 2 para 0 for complaints of contractions since 1600. Patient also came in for decreased movement. NST BPP was 8 out of 8. And SRINI was 3.5. The baby also was measuring 36 weeks so patient was can For spontaneous labor. Denies leaking or bleeding. Patient started her care with Dr. Angel. Transferred care to [facility] [place] [facility] clinic at 35 weeks denies social habits. Denies surgery. Denies chronic illness. Patient is B+, antibody screen negative, RPR nonreactive, rubella immune, hepatitis B negative. HIV negative, hepatitis C negative, GC and Chlamydia were negative. 1 hour was normal. NIPT , AFP and carrier screens were all negative. GBS Pap Peripartum Data Delivery Method: Normal Vaginal Delivery Episiotomy Description: Midline Laceration Description: no complications: none Time Spent with Patient Time attestation: Total time spent providing and/or coordinating discharge services: Exam Vital Signs Temp Pulse Resp BP Pulse Ox O2 Del Method 97.7 F 96 17 122/80 97 Room Air 05/13/25 04:30 05/12/25 02:46 05/13/25 04:30 05/13/25 04:30 05/13/25 04:30 05/13/25 04:30 Discharge Plan Plan Patient Disposition: HOME (Self Care) Patient condition on transfer: Stable Prescriptions/Referrals Prescriptions/Med Rec: No Action vit-iron fum-folic ac [ Vitamin with Minerals] 28 mg iron- 800 mcg tablet 1 tab PO QDAY Qty: 60 3RF Referrals: No Primary/Family,Physician [Primary Care Provider] Patient/Caregiver Discharge Instructions Meds to Beds: No Discharge Activity: resume usual activities Print Language: Venezuelan Activity Restrictions/Additional Instructions: Discharge home with baby. Continue vitamins and iron. Tylenol or ibuprofen for pain. Discussed danger signs symptoms and ER precautions. And discussed signs symptoms of infection. I discussed wound care and comfort measures for midline episiotomy. Return in 2 weeks check Stand Alone Forms: Jolene Award Info., Patient Portal Info Letter Discharge Order Discharge Orders: Discharge (Routine); Ordered 05/13/25 Ordered By: Gianna Ruiz Planned Discharge Date 05/13/25
== END 2025-05-13 13:12 | disposition home or self-care (01) | DRG 560 ==
LOC: S4SX 19:42 → S4NX 05-12 03:23
PROVIDERS: Admitting Provider Advanced Practice Midwife; Visit Provider Advanced Practice Midwife
DX: O48.0 Post-term pregnancy (principal); Z37.0 Single live birth; Z3A.40 40 weeks gestation of pregnancy; O77.0 Labor and delivery complicated by meconium in amniotic fluid; O36.8130 Decreased fetal movements, third trimester, not applicable or unspecified
CPT/HCPCS: 36415; 59025; 59409; 76805; 76819; 80307; 85025; 86780; 86850; 86900; 86901; 94762; J0290; J2590; J2795; J3010; J3490; J7050; J7120; S0191; A9270

== ENCOUNTER 2025-05-27 15:29 | Outpatient (AMB) | payer MEDICAID, SELFPAY ==
[2025-05-27 15:38] VITALS: BP 120/74; PULSE 104; RESP 17; TEMP 36.9; O2SAT 98; BMI 24.9
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
== END 2025-05-27 16:24 | disposition home or self-care (01) ==
LOC: HODSOBC 15:29
PROVIDERS: Supervising Provider Advanced Practice Midwife; Visit Provider Advanced Practice Midwife
DX: Z39.2 Encounter for routine postpartum follow-up (principal); Z39.1 Encounter for care and examination of lactating mother
CPT/HCPCS: 59425; 99213; G0463

== ENCOUNTER 2025-06-30 10:03 | Outpatient (AMB) | payer MEDICAID, SELFPAY ==
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
[2025-06-30 10:20] VITALS: BP 114/71; PULSE 65; RESP 14; TEMP 36.3; O2SAT 98; BMI 23.5
== END 2025-06-30 10:36 | disposition home or self-care (01) ==
LOC: HODSOBC 10:03
PROVIDERS: Supervising Provider Advanced Practice Midwife; Visit Provider Advanced Practice Midwife
DX: Z30.017 Encounter for initial prescription of implantable subdermal contraceptive (principal); Z32.02 Encounter for pregnancy test, result negative
CPT/HCPCS: 11981; 81025; 96372; 99215; J3490; J7301; G0463